=== PATIENT | male | born 1965 | race Caucasian/White ===

== ENCOUNTER 2018-05-31 09:50 | Emergency (ER) | payer OTHER, BC ==
[2018-05-31 09:54] VITALS: BP 115/60; PULSE 62; TEMP 98.2; BMI 21.7
[2018-05-31] MEDS ORDERED: ACETAMINOPHEN 325 MG TABLET (FP) PO ONE (10:07)
--- NOTE | 2018-05-31 10:07 | PDOC ---
Attending Attestation - Resident Resident Name: Flori Walsh - HPI HPI: 05/31/18 10:27 Pt presents to the ED complaining of a one day history of R 4th digit pain and swelling after crushing his finger between two 250 lb drums yesterday. Denies other injuries. Presents today because pain and swelling have worsened and he is concerned that the finger may be infected. Denies fever, nausea or vomiting or other injuries. - Physicial Exam PE: 05/31/18 10:31 Agree with resident exam. R 4th digit is swollen, tender and ecchymotic at the DIP, with full ROM and no limitation of ROM. - Medical Decision Making 05/31/18 10:32 Pt presents to the ED with 4th digit that is swollen and tender at the DIP after crush injury. will check xray and reassess. Xray is negative for fx. Will discharge home. 05/31/18 11:35
[2018-05-31] MEDS ORDERED: ACETAMINOPHEN 325 MG TABLET (FP) ONE (10:11)
--- NOTE | 2018-05-31 10:13 | PDOC ---
History of Present Illness - General Chief Complaint: Injury Stated Complaint: RT 4TH FINGER INJURY Time Seen by Provider: 05/31/18 10:01 History Source: Patient Exam Limitations: No Limitations - History of Present Illness Initial Comments: 05/31/18 10:08 53 year man with history of HLD who presents 1 day after trauma to the R 4th digit. The patient was moving 250 pound cylinders when he smashed his finger between them at around 1000 yesterday. He was wearing gloves and his hands were numb at the time. He stopped working and warmed his hands, after which he felt throbbing like pain in the R finger and noticed a small amount of blood on the corner of his R 4th digit nail. At 1500 he noticed a color changes to shana, bruising and last night felt that the pain was worsening and throbbing so much that he took Advil and put cool water and ice over his finger. This morning he felt like he might have a fever and took two ASAs. He denies any purulence are drainage from the nail, denies any stiffness or difficulty moving the finger. He has no history of diabetes, but does smoke 1/2 ppd for > 20 years. He denies trauma to any other fingers or extremities. He has no complaints at bedside. PMHX: as in HPI PSHX: see below Meds: statin Allergies: NKDA Tob: 1/2 ppd PCP: [facility] Past History - Past Medical History Allergies/Adverse Reactions: Allergies Allergy/AdvReac Type Severity Reaction Status Date / Time No Known Allergies Allergy Verified 05/31/18 09:51 Home Medications: Ambulatory Orders Simvastatin [Zocor -] 10 mg PO DAILY 07/12/12 COPD: Yes Hypercholesterolemia: Yes - Immunization History Immunization Up to Date: Yes - Suicide/Smoking/Psychosocial Hx Smoking Status: Yes Smoking History: Current every day smoker Have you smoked in the past 12 months: Yes Number of Cigarettes Smoked Daily: 10 Information on smoking cessation initiated: Yes Hx Alcohol Use: No Drug/Substance Use Hx: No Review of Systems - Review of Systems Able to Perform ROS?: Yes Is the patient limited Khmer proficient: No Constitutional: No: Chills, Diaphoresis, Fever Respiratory: No: Shortness of Breath Cardiac (ROS): No: Chest Pain Musculoskeletal: No: Joint Pain, Joint Swelling, Muscle Pain, Muscle Weakness, Joint Stiffness Integumentary: Yes: Bruising, Erythema. No: Lesions, Pallor, Pruritus *Physical Exam - Vital Signs Last Vital Signs Temp Pulse Resp BP Pulse Ox 98.2 F 62 18 115/60 98 05/31/18 09:50 05/31/18 09:50 05/31/18 09:50 05/31/18 09:50 05/31/18 09:50 - Physical Exam Comments: 05/31/18 10:15 GENERAL: Awake, alert, and fully oriented, in no acute distress HEAD: No signs of trauma, normocephalic, atraumatic EYES: EOMI, sclera anicteric, conjunctiva clear ENT: oropharynx clear without exudates. Moist mucosa NECK: Normal ROM LUNGS: No distress, speaks full sentences, clear to auscultation bilaterally HEART: Regular rate and rhythm, normal S1 and S2, no murmurs, rubs or gallops, peripheral pulses normal and equal bilaterally. ABDOMEN: Soft, nontender, normoactive bowel sounds. No guarding, no rebound. No masses EXTREMITIES : + violaceous color change to the R 4th digit from DIP to finger tip with slight swelling, minor nail crack without blood, drainage, purulence, no subungal hematoma, Normal range of motion, difficulty with opposition against 4th digit 2/2 pain NEUROLOGICAL: Cranial nerves II through XII grossly intact. Normal speech, normal gait, no focal sensorimotor deficits SKIN: Warm, Dry, normal turgor, no rashes or lesions noted Moderate Sedation - Procedure Monitoring Vital Signs: Procedure Monitoring Vital Signs Temperature 98.2 F 05/31/18 09:50 Pulse Rate 62 05/31/18 09:50 Respiratory Rate 18 05/31/18 09:50 Blood Pressure 115/60 05/31/18 09:50 O2 Sat by Pulse Oximetry (%) 98 05/31/18 09:50 ED Treatment Course - RADIOLOGY Radiology Studies Ordered: Category Date Time Status HAND- RIGHT [RAD] Stat Radiology 05/31/18 10:07 Ordered Medical Decision Making - Medical Decision Making 05/31/18 10:13 53 year man with history of HLD who presents 1 day after trauma to the R 4th digit. The patient was moving 250 pound cylinders when he smashed his finger between them at around 1000 yesterday. He was wearing gloves and his hands were numb at the time. He stopped working and warmed his hands, after which he felt throbbing like pain in the R finger and noticed a small amount of blood on the corner of his R 4th digit nail. At 1500 he noticed a color changes to shana, bruising and last night felt that the pain was worsening and throbbing so much that he took Advil. This morning he felt like he might have a fever and took two ASAs. He denies any purulence are drainage from the nail, denies any stiffness or difficulty moving the finger. He has no history of diabetes, but does smoke 1/2 ppd for > 20 years. He denies trauma to any other fingers or extremities. He has no complaints at bedside. ED Course: Patient with swelling and skin changes from R 4th DIP to fingertip concerning for fracture vs contusion vs dislocation. Will evaluated with imaging and treat pain. Less likely dislocation as patient with full mobility. XR: no fracture as read by this financial underwriter and attending. Patient with contusion 2/2 trauma. Patient stable for discharge. Informed of all lab and imaging results. Given follow up instructions and strict return precautions. Patient expressed understanding and agree to plan. *DC/Admit/Observation/Transfer Diagnosis at time of Disposition: Crushed finger, Crushing injury of finger of right hand - Discharge Dispostion Disposition: HOME Condition at time of disposition: Stable Decision to Admit order: No - Referrals Referrals: Joaquin Tinsley MD [Primary Care Provider] - Gary Corbett MD [Staff Physician] - - Patient Instructions Additional Instructions: You were seen in the ED for complaints of crushing of the R hand 4th digit In the ED you were evaluated with imaging. Your results did not show a fracture. There does not appear to be an acute need for immediate hospitalization. You are advised to follow up with your Primary Care Physician within 1 week. You were given a referral to Hand Surgery and are advised to follow up within 1 week. Please rest the hand, ice the finger, refrain from painful activities or heavy lifting. Return to the ED immediately if you experience worsening pain in the finger, immobility or significant weakness of the finger, worsening of skin color changes including color change to red, black, brown, drainage of pus from the nailbed or fever. - Post Discharge Activity Forms/Work/School Notes: Back to Work
== END 2018-05-31 11:34 | disposition home or self-care (01) ==
LOC: FER 09:50
DX: S67.194A Crushing injury of right ring finger, initial encounter (principal); W23.0XXA Caught, crushed, jammed, or pinched between moving objects, initial encounter; Y93.89 Activity, other specified; Y92.89 Other specified places as the place of occurrence of the external cause; Y99.0 Civilian activity done for income or pay; F17.210 Nicotine dependence, cigarettes, uncomplicated; J44.9 Chronic obstructive pulmonary disease, unspecified; E78.00 Pure hypercholesterolemia, unspecified
CPT/HCPCS: 73130-TC-RT-FY; 99282-25

== ENCOUNTER 2019-01-21 10:02 | Emergency (ER) | payer BC, OTHER ==
[2019-01-21 10:17] VITALS: BP 108/62; PULSE 71; TEMP 98.2; BMI 24.2
--- NOTE | 2019-01-21 11:41 | PDOC ---
History of Present Illness - General Chief Complaint: Psychiatric Stated Complaint: ANXIETY Time Seen by Provider: 01/21/19 10:48 - History of Present Illness Initial Comments: 01/21/19 11:35 53 years old with past medical history significant for hyperlipidemia anxiety depression and OCD presents to the emergency department with several week history of worsening major depressive type symptoms as well as worsening obsessive-compulsive behaviors. Patient had briefly been on a course of Xanax and Prozac by his doctor but stops after no significant response to treatment He has not seen a psychiatrist for the past year or 2. He is here with his in the emergency department stating that he cannot shut off the thoughts in his head. He denies any suicidal ideation homicidal ideation he has had no previous suicide attempts he has no thoughts of harming himself or others Symptoms are moderate to severe persistent constant with no alleviating factors. Past History - Past Medical History Allergies/Adverse Reactions: Allergies Allergy/AdvReac Type Severity Reaction Status Date / Time No Known Allergies Allergy Verified 01/21/19 10:10 Home Medications: Ambulatory Orders Simvastatin [Zocor -] 10 mg PO DAILY 07/12/12 Xanax 0.25 mg PO ASDIR 01/21/19 COPD: Yes Hypercholesterolemia: Yes Psychiatric Problems: Yes (anxiety) - Immunization History Immunization Up to Date: Yes - Suicide/Smoking/Psychosocial Hx Smoking Status: Yes Smoking History: Current some day smoker Have you smoked in the past 12 months: Yes Number of Cigarettes Smoked Daily: 10 Information on smoking cessation initiated: No 'Breaking Loose' booklet given: 05/31/18 Hx Alcohol Use: No Drug/Substance Use Hx: No Review of Systems - Review of Systems Comments:: 01/21/19 11:36 ROS: A complete review of 10 out of 10 review of systems is taken and is negative apart from what is previously mentioned below and in the HPI. *Physical Exam - Vital Signs Last Vital Signs Temp Pulse Resp BP Pulse Ox 98.2 F 71 18 108/62 99 01/21/19 10:14 01/21/19 10:14 01/21/19 10:14 01/21/19 10:14 01/21/19 10:14 - Physical Exam Comments: 01/21/19 11:38 Vitals: Triage Vital signs reviewed General Appearance: Generally anxious, well nourished well developed, Head: Atraumatic, Cardiac: Regular rate and rhythym, no murmurs, no rubs, no gallops, Lungs: Clear to auscultation bilateral, good air movement bilaterally, Abdomen: Soft, non distended, normal bowel sounds, non tender to palpation Extremities: Full range of motion to all extremities, no cyanosis, clubbing, or edema Skin: Warm and dry, no rashes or lesions, no rash, no petechiae Psych: normal mood, normal affect Medical Decision Making - Medical Decision Making 01/21/19 11:41 Patient with moderate to severe OCD and depression. He is here with his . I provided the patient with a list of local facilities that offer both inpatient and outpatient evaluation and treatment. Our care management team has also spoken to the patient and provided the patient with a list of local facilities Patient and his will proceed directly to one of the recommended facilities. *DC/Admit/Observation/Transfer Diagnosis at time of Disposition: Anxiety - Discharge Dispostion Disposition: HOME Decision to Admit order: No - Referrals Referrals: Joaquin Tinsley MD [Primary Care Provider] - - Patient Instructions Printed Discharge Instructions: Anxiety Disorders Additional Instructions: Please proceed directly to one of the local facilities that provides both outpatient and inpatient psychiatric care. Return to nearest emergency department for any thoughts of hurting herself or for any concerns. - Post Discharge Activity
== END 2019-01-21 12:00 | disposition home or self-care (01) ==
LOC: JER 10:02
DX: F41.9 Anxiety disorder, unspecified (principal); E78.5 Hyperlipidemia, unspecified; F17.210 Nicotine dependence, cigarettes, uncomplicated
CPT/HCPCS: 99281-25

== ENCOUNTER 2020-12-28 08:59 | Emergency (ER) | payer BC, OTHER ==
[2020-12-28 10:27] VITALS: BP 118/74; PULSE 61; TEMP 98; BMI 21.7
== END 2020-12-28 10:52 | disposition home or self-care (01) ==
LOC: FER 08:59
DX: S93.492A Sprain of other ligament of left ankle, initial encounter (principal)
CPT/HCPCS: 73610-TC-LT-FY; 99283-25